=== PATIENT | female | born 1995 | race Caucasian/White ===

== ENCOUNTER 2017-08-21 08:01 | Emergency (ER) | payer BC ==
[2017-08-21 08:16] VITALS: BP 115/65
[2017-08-21] MEDS ORDERED: LIDOCAINE HCL 20 ML UDC MM ONE (08:33)
[2017-08-21] MEDS ORDERED: NAPROXEN SODIUM 550 MG TABLET PO ONE (08:33)
[2017-08-21] MEDS ORDERED: NAPROXEN SODIUM 550 MG TABLET ONE (08:37)
--- NOTE | 2017-08-21 08:37 | ERNOTE ---
ENT HPI Time Seen by Provider: 08/21/17 08:23 Source: patient Exam Limitations: no limitations - Immun/Allergies/Home Medications Immunizations: IMMUNIZATION HX Immunizations Up to Date Yes History of Influenza Vaccine No Hx Pneumococcal Vaccination No Allergies/Adverse Reactions: Allergies Allergy/AdvReac Type Severity Reaction Status Date / Time No Known Allergies Allergy Verified 08/21/17 08:16 Home Medications: HOME MEDICATIONS Amoxicillin 500 mg PO TID 08/21/17 [Last Taken Unknown] Naproxen [Naprosyn] 500 mg PO BID #40 tablet 08/21/17 [Last Taken Unknown] - History of Present Illness Narrative: Patient has had left upper tooth pain on and off for a while with the pain getting worse as well as gum swelling over the last few days. She saw her dentist yesterday, was started on amoxicillin, but no pain meds. The swelling has gotten worse and the pain kept her from sleeping, had ibuprofen 400mg at 05: 00. Review of Systems - Review of Systems Constitutional: Absent: recent illness, fever ENT: Absent: nose congestion, sore throat Respiratory: Absent: shortness of breath Cardiology: Absent: chest pain Gastrointestinal/Abdominal: Absent: nausea, abdominal pain Genitourinary: Present: no symptoms reported Musculoskeletal: Present: no symptoms reported Skin: Present: no symptoms reported Neurological: Present: no symptoms reported - Patient's Past Medical History Patient History - Medical: No pertinent hx Patient History - Cardiac/Respiratory: No pertinent hx Patient History - Cancer: No Hx of Cancer Patient History - Surgical Procedures: No surgical history Patient History - Other: None LMP (females 10-50): unknown - Social History Living Situations: home Abuse History: No History of abuse Psych History: No pertinent hx Smoking Status: Current every day smoker Cigarettes Packs Per Day: 0.5 Have you smoked in the past 12 months: Yes Alcohol Use: none Drug Use: none - Immunizations Immunizations Up to Date: Yes Hx Pneumococcal Vaccination: No History of Influenza Vaccine: No Physical Exam - Physical Exam General Appearance: Present: wd/wn, alert, no apparent distress Eye Exam: Normal inspection: bilateral Ears, Nose, Throat: Present: normal ENT inspection, normal pharynx, other - left upper gum tender tooth and swollen, tender gum and what appears to be an abscess formation Neck: Absent: lymphadenopathy (R), lymphadenopathy (L) Respiratory: Present: no respiratory distress, normal breath sounds, no accessory muscle use, lungs clear Neurological Exam: Present: alert, oriented, normal mood/affect Skin Exam: Present: normal color, warm/dry ED Progress - Vital Signs Patient's Vital Signs:: I have reviewed the patient's vital signs. Vital Signs: Vital Signs 08/21/17 08:08 Temperature 36.7 C Pulse Rate 109 H Respiratory 16 Rate Blood Pressure 115/65 O2 Sat by Pulse 100 Oximetry - Progress/Reassessment Chief Complaint: Dental Problem Departure Clinical Impression: Pain, dental - Departure Disposition: Home self-care Condition: Good Instructions: Dental Abscess, [id number] Additional Instructions: call your dentist for follow up Referrals: Shannon Dillon FNP [Primary Care Provider] - Prescriptions: Naproxen [Naprosyn] 500 mg PO BID #40 tablet
== END 2017-08-21 08:40 | disposition home or self-care (01) ==
LOC: ER 08:01
DX: K08.89 Other specified disorders of teeth and supporting structures (principal); F17.200 Nicotine dependence, unspecified, uncomplicated